=== PATIENT | female | born 1975 | race African-American/Black ===

== ENCOUNTER 2017-10-01 23:24 | Inpatient (IN) | payer SELFPAY ==
[~2017-10-01] VITALS: Ht 165.1 cm; Wt 66.2 kg
--- NOTE | 2017-10-01 23:24 | NUR ---
2320- PT [facility]. TAKEN TO BED 11
[2017-10-01 23:25] VITALS: BP 139/87
--- NOTE | 2017-10-01 23:36 | NUR ---
42Y/F PT. BIBA TO ED WITH C/O ALOC. PER EMS;PT. WAS FOUND AT THE BUS STOP BY SECURITY, HARDLY WAKE UP. BS 101, UNABLE TO OBTAIN MED HX. AAO X4, AMBULATORY WITH STEADY GAIT. EPISODE OF LAUGHING. PT. STATES " I HAVE NOT SLEPT FOR 3 MONTHS". GCS 15. SKIN WARM AND DRY, NO APPARENT INJURY. VSS, ER MADE AWARE OF PT. STATUS.
[2017-10-02] VITALS (8 sets, daily range): BP systolic 115–140; BP diastolic 66–80
--- NOTE | 2017-10-02 00:24 | NUR ---
Patient being evaluated by at bedside.
--- NOTE | 2017-10-02 00:45 | NUR ---
PT. AAO X4, ABLE TO WALK TO BATHROOM AND COLLECT URINE SPECIMEN.
--- NOTE | 2017-10-02 00:56 | NUR ---
PT. TAKEN TO CT
[2017-10-02 01:01] LABS: HEMATOCRIT 33.7 % (36-48); HEMOGLOBIN 10.6 g/dL (12.0-16.0); MEAN CORPUSCULAR HEMOGLOBIN 28 pg (27-31); MEAN CORPUSCULAR HGB CONC 32 g/dL (33-37); MEAN CORPUSCULAR VOLUME 89 fL (80-94); PLATELET COUNT (AUTO) 259 K/uL (140-450); RED BLOOD CELL COUNT(AUTO) 3.77 MIL/uL (4.20-5.40); RED CELL DISTRIBUTION WIDTH 14.3 % (11.6-13.7); WHITE BLOOD COUNT (AUTO) 4.8 K/uL (4.8-10.8)
[2017-10-02 01:12] LABS: APPEARANCE,URINE CLEAR (CLEAR); BILIRUBIN,URINE NEGATIVE (NEGATIVE); BLOOD, URINE NEGATIVE (NEGATIVE); COLOR,URINE YELLOW (YELLOW); LEUKOCYTE ESTERASE ,URINE NEGATIVE (NEGATIVE); NITRITE, URINE NEGATIVE (NEGATIVE); PH,URINE 7.5 (5.0-9.0); UGLUCOSE NEGATIVE (NEGATIVE)
[2017-10-02 01:13] LABS: ANION GAP 10.4 (8-16); CARBON DIOXIDE 28.1 mmol/L (21-32); CHLORIDE 105 mmol/L (98-107); CREATININE 0.8 mg/dL (0.6-1.3); GFR ARICAN-AMERICAN 101 mL/min (>90); GLUCOSE 77 mg/dL (74-106); POTASSIUM 3.5 mmol/L (3.5-5.1); SODIUM SERUM 140 mmol/L (136-145); UREA NITROGEN, BLOOD 15 mg/dL (7-18)
--- NOTE | 2017-10-02 01:20 | NUR ---
PT. BACK FROM CT
[2017-10-02 01:21] LABS: BARBITURATE, URINE NEG. ng/ml (NEG <=200); BENZODIAZEPINE, URINE NEG. ng/mL (NEG <=200); CANNABINOID, URINE NEG. ng/mL (NEG <=50); COCAINE, URINE NEG. ng/mL (NEG <=300); OPIATE, URINE NEG. ng/mL (NEG <=2000); PHENCYCLIDINE SCREEN,URINE NEG. ng/mL (NEG <=25)
[2017-10-02 01:23] LABS: EOSINOPHILS % (MANUAL) 2 % (0-4); LYMPHOCYTES % (MANUAL) 44 % (20-46); MONOCYTES % (MANUAL) 12 % (5-12)
[2017-10-02 01:26] LABS: ASPARTATE AMINOTRANSFERASE 41 U/L (15-37); TOTAL BILIRUBIN 0.2 mg/dL (0.0-1.0)
[2017-10-02 01:27] LABS: ACETAMINOPHEN < 0.5 ug/ml (10-30); SALICYLATE < 2.8 mg/dL (2.8-20.0)
[2017-10-02 01:32] LABS: RBC,URINE 0-5 (RARE) /HPF (0-5); WBC,URINE 0-5 (RARE) /HPF (0-5)
--- NOTE | 2017-10-02 01:42 | NUR ---
Patient appears to be resting comfortably in bed. Vital Signs within normal limits. Respirations even and unlabored.
[2017-10-02 01:47] LABS: CKMB RELATIVE INDEX 1.4 (0.0-2.5)
[2017-10-02 01:49] LABS: CREATINE KINASE MB 10.9 ng/mL (0-3.6)
[2017-10-02] MEDS ORDERED: NACL 0.9% 1,000 ML IV ONE (02:15)
[2017-10-02] MEDS ORDERED: HYDROcodone/APAP 7.5/325 MG 1 TAB PO PRN (02:30)
[2017-10-02] MEDS ORDERED: ACETAMINOPHEN 325 MG TAB PO PRN (02:30)
[2017-10-02] MEDS ORDERED: ONDANSETRON 4 MG/2 ML VIAL IVP PRN (02:30)
--- NOTE | 2017-10-02 03:43 | NUR ---
Patient will be admitted to care of . Admited to TELE. Will go to [id number]. Belongings list completed. Report to LATASHA.
--- NOTE | 2017-10-02 03:45 | NUR ---
RECEIVED REPORT AT BEDSIDE FROM ER NURSE. PT A/OX2, ON ROOM AIR, VERY SLEEPY. PT HAS LEFT WRIST 18G IV. NO SKIN PROBLEMS NOTED, INTACT. SAFETY PRECAUTIONS IN PLACE. UPDATED BOARD. VITAL SIGNS WITHIN NORMAL LIMITS, PT DENIES PAIN. PT IN STABLE CONDITION, NO SIGNS OF DISTRESS NOTED. BED IN LOW POSITION, CALL LIGHT WITHIN REACH. WILL CONTINUE TO MONITOR.
[2017-10-02] MEDS: NACL 0.9% 1,000 ML IV SCH ×4 (04:15→23:21)
[2017-10-02 04:18] LABS: CHOL/HDL RATIO 2.6 (1-4.5); FREE T4 (FREE THYROXINE) 1.24 ng/dL (0.76-1.46); MAGNESIUM 2.2 mg/dL (1.8-2.4); PHOSPHORUS 2.5 mg/dL (2.5-4.9); THYROID STIMULATING HORMONE 0.47 uIU/mL (0.34-3.74)
[2017-10-02] MEDS ORDERED: MECLIZINE 25 MG TAB PO PRN (05:05)
--- NOTE | 2017-10-02 06:00 | NUR ---
ORTHOSTATIC VITAL SIGNS DONE. PT STILL CONFUSED A/OX2 TO NAME AND PLACE. PT STATES SHE BROUGHT HERSELF IN BECAUSE SHE HASN'T "GOTTEN ANY SLEEP IN 3 MONTHS." PT DOES NOT KNOW WHAT MONTH IT IS, AND PT VERY SLEEPY. HARD TO GET ANSWERS FROM PT.
--- NOTE | 2017-10-02 07:25 | NUR ---
ENDORSED PT IN STABLE CONDITION TO DAY SHIFT NURSE FOR CONTINUITY OF CARE.
--- NOTE | 2017-10-02 07:26 | NUR ---
RECEIVED PT IN IN BED. ASLEEP. AROUSABLE TO VOICE. ALERT ORIENTEDX2. NO SOB NOTED. DENIES ANY PAIN OR DISCOMFORT AT THIS TIME. PT AMBULATORY WITH ASSIST. SAFETY PRECAUTION IN PLACE. CALL LIGHT WITHIN REACH.
[2017-10-02] MEDS: DOCUSATE SODIUM 100 MG GELCAP PO SCH ×2 (08:43→20:59)
--- NOTE | 2017-10-02 10:31 | NUR ---
RD IS UNABLE TO ASSESS OR SCREEN PT AT THIS TIME DUE TO NEW ADMIT, INSUFFICIENT DATA IN MEDICAL CHART, & PT UNCOOPERATIVE. PT IS CATEGORIZED NUTRITION SCREEN DUE WITHIN 1-2 DAYS OF ADMISSION. 10/03/17 - 10/04/17 ZAYDA FUENTES MBA, RD
--- NOTE | 2017-10-02 10:44 | NUR ---
DR. MARTINEZ AND THE RESIDENTS CAME TO SEE PT. PER DR. MARTINEZ PT NEEDS TO HAVE PSYCH EVAL.
--- NOTE | 2017-10-02 11:55 | NUR ---
DR. CASTELAN (PSYCH CONSULT) CAME TO SEE PT.
--- NOTE | 2017-10-02 18:40 | NUR ---
PT KEPT CLEAN, DRY AND COMFORTABLE, NEEDS ATTENDED. NO SOB NOTED. DENIES ANY PAIN OR DISCOMFORT AT THIS TIME. WILL ENDORSE TO NEXT SHIFT. PT ON STABLE CONDITION. FOR CONTINUITY OF CARE.
--- NOTE | 2017-10-02 19:05 | NUR ---
PT A/OX2, ON ROOM AIR. PT HAS LEFT WRIST 18G IV INFUSING NS@150ML/HR. NO SKIN PROBLEMS NOTED, INTACT. SAFETY PRECAUTIONS IN PLACE. UPDATED BOARD. VITAL SIGNS WITHIN NORMAL LIMITS, PT DENIES PAIN. PT STATES ORAL THERMOMETER "IS BAD FOR MY BRACES," SO TEMPERATURE TAKEN WITH TEMPORAL THERMOMETER. PT IN STABLE CONDITION, NO SIGNS OF DISTRESS NOTED. BED IN LOW POSITION, CALL LIGHT WITHIN REACH. WILL CONTINUE TO MONITOR.
--- NOTE | 2017-10-02 21:00 | NUR ---
PT REFUSED TO TAKE COLACE BECAUSE PT DENIES NEED FOR IT. EXPLAINED TO PT THAT SINCE SHE IS IN THE HOSPITAL, A STOOL SOFTENER IS PROPHYLACTIC TO AVOID CONSTIPATION. EXPLAINED RISKS AND BENEFITS OF MEDICATION WELL. PT STILL REFUSED TO TAKE MEDICATION.
--- NOTE | 2017-10-03 | NUR ---
VITAL SIGNS WITHIN NORMAL LIMITS. PT DENIES PAIN. PT IN STABLE CONDITION, NO SIGNS OF DISTRESS NOTED. BED IN LOW POSITION, CALL LIGHT WITHIN REACH. WILL CONTINUE TO MONITOR.
[2017-10-03 00:31] VITALS: BP 133/76
[2017-10-03 04:00] VITALS: BP 116/72
--- NOTE | 2017-10-03 04:00 | NUR ---
VITAL SIGNS WITHIN NORMAL LIMITS, PT DENIES PAIN. PT IN STABLE CONDITION, NO SIGNS OF DISTRESS NOTED. BED IN LOW POSITION, CALL LIGHT WITHIN REACH. WILL CONTINUE TO MONITOR.
--- NOTE | 2017-10-03 05:15 | NUR ---
TELE MONITOR BATTERIES CHANGED. PT IN STABLE CONDITION, NO SIGNS OF DISTRESS NOTED. BED IN LOW POSITION, CALL LIGHT WITHIN REACH. WILL CONTINUE TO MONITOR.
[2017-10-03] MEDS: NACL 0.9% 1,000 ML IV SCH (06:00)
[2017-10-03 06:39] LABS: HEMOGLOBIN 11.1 g/dL (12.0-16.0); MEAN CORPUSCULAR HEMOGLOBIN 29 pg (27-31); MEAN CORPUSCULAR HGB CONC 33 g/dL (33-37); MEAN CORPUSCULAR VOLUME 89 fL (80-94); PLATELET COUNT (AUTO) 227 K/uL (140-450); RED BLOOD CELL COUNT(AUTO) 3.84 MIL/uL (4.20-5.40); RED CELL DISTRIBUTION WIDTH 13.8 % (11.6-13.7); WHITE BLOOD COUNT (AUTO) 4.1 K/uL (4.8-10.8)
[2017-10-03 06:53] LABS: ANION GAP 13.9 (8-16); CARBON DIOXIDE 25.8 mmol/L (21-32); CREATININE 0.7 mg/dL (0.6-1.3); POTASSIUM 3.7 mmol/L (3.5-5.1)
[2017-10-03 06:59] LABS: MAGNESIUM 1.5 mg/dL (1.8-2.4); PHOSPHORUS 3.7 mg/dL (2.5-4.9)
--- NOTE | 2017-10-03 07:02 | NUR ---
ENDORSED PT IN STABLE CONDITION TO DAY SHIFT RN FOR CONTINUITY OF CARE.
--- NOTE | 2017-10-03 07:27 | NUR ---
RECEIVED PT IN BED. ASLEEP. AROUSABLE TO TOUCH. ALERT ORIENTEDX2. NO SOB NOTED. DENIES ANY PAIN OR DISCOMFORT AT THIS TIME. PT AMBULATORY. SAFETY PRECAUTION IN PLACE. CALL LIGHT WITHIN REACH.
[2017-10-03 07:49] VITALS: BP 112/65
[2017-10-03] MEDS ORDERED: ZIPRASIDONE 40 MG CAP PO SCH (08:00)
[2017-10-03] MEDS: DOCUSATE SODIUM 100 MG GELCAP PO SCH (08:03)
[2017-10-03 08:37] LABS: LYMPHOCYTES % (MANUAL) 47 % (20-46); MONOCYTES % (MANUAL) 7 % (5-12)
[2017-10-03 08:38] LABS: EOSINOPHILS % (MANUAL) 2 % (0-4)
--- NOTE | 2017-10-03 10:19 | NUR ---
PATIENT HAS BEEN SCREENED AND CATEGORIZED MODERATE NUTRITION RISK. PATIENT WILL BE SEEN WITHIN 3-5 DAYS OF ADMISSION. 10/04/17-10/06/[address]
--- NOTE | 2017-10-03 10:31 | NUR ---
DR. BENAVIDES MADE AWARE OF LATEST MAGNESIUM LEVEL 1.5. TO PUT IN AN ORDER.
[2017-10-03 11:45] VITALS: BP 121/78
[2017-10-03] MEDS ORDERED: MAGNESIUM OXIDE 400 MG TAB PO SCH (12:00)
[2017-10-03] MEDS ORDERED: ZIPR80CA1 PO (12:03)
--- NOTE | 2017-10-03 12:32 | NUR ---
DISCHARGE INSTRUCTIONS AND PT TEACHINGS GIVEN AND EXPLAINED TO PT. PT VERBALIZED UNDERSTANDING AND SIGNED DISCHARGE PAPERS. PROVIDED WITH HOMELESS RESOURCE PACKET. BRUCE DRY ROOM OPERATOR CAME TO SEE PT. PT VERBALIZED UNDERSTANDING AND SIGNED HOMELESS PATIENT WAIVER FORM. PT PROVIDED WITH BUS PASS. IV CANNULA REMOVED AND INTACT. NO SOB NOTED. DENIES ANY PAIN OR DISCOMFORT AT THIS TIME. PT VERBALIZED SHE WANTED TO FINISH HER LUNCH BEFORE DISCHARGE.
--- NOTE | 2017-10-03 12:42 | NUR ---
REMINDED PT TO FOLLOW UP WITH THE DOCTOR'S APPT SCHEDULED ON THE DISCHARGE PAPERS. PROVIDED WITH DISCHARGE PRESCRIPTIONS. PROVIDED WITH BUS PASS. NAME ARMBAND REMOVED. TELE MONITOR REMOVED. PT WHEELED OUT GOING OUTSIDE THE HOSPITAL ASSISTED BY SHRUTI. NO SOB NOTED. DENIES ANY PAIN OR DISCOMFORT AT THIS TIME. PT DISCHARGED ON STABLE CONDITION.
[2017-10-04 06:16] LABS: FOLIC ACID 5.9 ng/mL (>3.0)
== END 2017-10-03 12:45 | disposition home or self-care (01) | DRG 441 ==
LOC: MED 23:24 → MTU 10-02 02:30
PROVIDERS: ADMIT Family Medicine; ATTEND Family Medicine
DX: K72.90 Hepatic failure, unspecified without coma (principal); G92 Toxic encephalopathy; E44.0 Moderate protein-calorie malnutrition; G90.9 Disorder of the autonomic nervous system, unspecified; M62.82 Rhabdomyolysis; D64.9 Anemia, unspecified; R79.89 Other specified abnormal findings of blood chemistry; F31.9 Bipolar disorder, unspecified; I44.0 Atrioventricular block, first degree; Z68.24 Body mass index [BMI] 24.0-24.9, adult; Z87.891 Personal history of nicotine dependence; Z59.0 Homelessness
CPT/HCPCS: 36415; 70450; 71045; 76705; 80048; 80053; 80305; 81001; 81025; 82140; 82150; 82550; 82553; 82607; 82728; 82746; 83036; 83540; 83690; 83735; 83874; 83880; 84100; 84439; 84443; 84484; 85025; 85045; 85610; 85730; 87081; 93005; 93880; 96360; 99285; G0480; G0482; J7030; Q0092